=== PATIENT | female | born 1995 | race African-American/Black ===

== ENCOUNTER 2019-11-26 01:28 | Emergency (ER) | payer MEDICAID, OTHER ==
[~2019-11-26] VITALS: Ht 157.5 cm; Wt 52.0 kg
[~2019-11-26 01:28] MED LIST: FERR-43 PO; PREN-55 PO
[2019-11-26 02:00] VITALS: BP 130/70
[2019-11-26] MEDS ORDERED: IBUPROFEN 400MG TABLET PO ONE (02:00)
== END 2019-11-26 02:49 | disposition home or self-care (01) ==
LOC: ER 01:28
DX: S00.83XA Contusion of other part of head, initial encounter (principal); S40.011A Contusion of right shoulder, initial encounter; D64.9 Anemia, unspecified; V43.62XA Car passenger injured in collision with other type car in traffic accident, initial encounter; Y93.9 Activity, unspecified; Y92.410 Unspecified street and highway as the place of occurrence of the external cause
CPT/HCPCS: 81025; 99282